=== PATIENT | female | born 1990 | race Caucasian/White ===

== ENCOUNTER 2017-04-26 16:56 | Emergency (ER) | payer BC, OTHER ==
[~2017-04-26] VITALS: Ht 157.5 cm; Wt 56.0 kg
[2017-04-26 16:59] VITALS: Ht 157.5 cm; Wt 56.0 kg
[2017-04-26] MEDS ORDERED: morphine 4 MG/ML VIAL IV STA (18:59)
[2017-04-26] MEDS ORDERED: ONDANSETRON 4 MG INJ IV STA (18:59)
[2017-04-26] MEDS ORDERED: SOD CHLORIDE 0.9% 1,000 ML IV STA (18:59)
--- NOTE | 2017-04-26 19:15 | ERD ---
ER Documentation Chief Complaint Chief Complaint SHAKY,DIZZINESS,AP HPI 26-year-old female presents here in emergency department for complaints of abdominal pain, generalized abdominal pain, radiating to the right flank area, sharp pain, 8/10 scale, not better or worse with anything. Patient feels shaky and dizzy at times. Patient denies any diarrhea or constipation. Patient denies any fever or chills. Patient denies any hematuria or dysuria ROS All systems reviewed and are negative except as per history of present illness. Medications Home Meds Active Scripts Ondansetron (Ondansetron Odt) 4 Mg Tab.rapdis, 4 MG PO Q6H Y for NAUSEA AND/OR VOMITING, #20 TAB Prov:MAGALY MENENDEZ NP 04/26/17 Ibuprofen* (Motrin*) 600 Mg Tab, 600 MG PO Q6H Y for PAIN AND OR ELEVATED TEMP, #30 TAB Prov:MAGALY MENENDEZ NP 04/26/17 Polyethylene Glycol* (Miralax*) 17 Gm Powd.pack, 17 GM PO DAILY, #7 Prov:MAGALY MENENDEZ NP 04/26/17 Docusate Sodium* (Colace*) 100 Mg Capsule, 100 MG PO TID, #30 CAP Prov:MAGALY MENENDEZ NP 04/26/17 Tramadol HCl (Tramadol HCl) 50 Mg Tablet, 50 MG PO Q6 Y for SEVERE PAIN LEVEL 7- 10, #20 TAB Prov:MAGALY MENENDEZ NP 04/26/17 Reported Medications [none] Unknown Strength No Conflict Check 04/26/17 Allergies Allergies: Coded Allergies: No Known Allergy (Verified Allergy, Unknown, 07/27/10) PMhx/Soc Medical and Surgical Hx: pt denies Medical Hx, pt denies Surgical Hx History of Surgery: No Anesthesia Reaction: No Hx Neurological Disorder: No Hx Respiratory Disorders: No Hx Cardiac Disorders: No Hx Psychiatric Problems: No Hx Miscellaneous Medical Probl: No Hx Alcohol Use: No Hx Substance Use: No Hx Tobacco Use: No FmHx Family History: No coronary disease, No diabetes, No other Physical Exam Vitals Vital Signs Date Time Temp Pulse Resp B/P Pulse Ox O2 Delivery O2 Flow Rate FiO2 04/26/17 16:59 98.1 110 18 150/72 99 Physical Exam GENERAL: The patient is well developed and appropriate for usual state of health, in no apparent distress. CHEST: Clear to auscultation bilaterally. There are no rales, wheezes or rhonchi. HEART: Regular rate and rhythm. No murmurs, clicks, rubs or gallops. No S3 or S4. ABDOMEN: Soft, nontender and nondistended. Good bowel sounds. No rebound or guarding. No gross peritonitis. No gross organomegaly or masses. No Smith sign or McBurney point tenderness. BACK: No midline or flank tenderness. EXTREMITIES: Equal pulses bilaterally. There is no peripheral clubbing, cyanosis or edema. No focal swelling or erythema. Full range of motion. Grossly neurovascularly intact. NEURO: Alert and oriented. Cranial nerves 2-12 intact. Motor strength in all 4 extremities with 5/5 strength. Sensation grossly intact. Normal speech and gait. SKIN: There is no apparent rash or petechia. The skin is warm and dry. HEMATOLOGIC AND LYMPHATIC: There is no evidence of excessive bruising or lymphedema. No gross cervical, axillary, or inguinal lymphadenopathy. Result Diagram: 04/26/17190904/26/171909 Results 24 hrs Laboratory Tests Test 04/26/17 19:10 White Blood Count 9.210^3/ul Red Blood Count 4.3610^6/ul Hemoglobin 14.4g/dl Hematocrit 40.5% Mean Corpuscular Volume 92.9fl Mean Corpuscular Hemoglobin 33.0pg Mean Corpuscular Hemoglobin Concent 35.6g/dl Red Cell Distribution Width 11.8% Platelet Count 66329^3/UL Mean Platelet Volume 11.4fl Neutrophils % 81.0% Lymphocytes % 13.7% Monocytes % 4.8% Eosinophils % 0.0% Basophils % 0.3% Nucleated Red Blood Cells % 0.0/100WBC Neutrophils # 7.410^3/ul Lymphocytes # 1.310^3/ul Monocytes # 0.410^3/ul Eosinophils # 0.010^3/ul Basophils # 0.010^3/ul Nucleated Red Blood Cells # 0.010^3/ul Urine Color STRAW Urine Clarity SLIGHTLY CLOUDY Urine pH 7.0 Urine Specific [place] 1.006 Urine Ketones TRACEmg/dL Urine Nitrite NEGATIVEmg/dL Urine Bilirubin NEGATIVEmg/dL Urine Urobilinogen NEGATIVEmg/dL Urine Leukocyte Esterase NEGATIVELeu/ul Urine Microscopic RBC 2/HPF Urine Microscopic WBC 1/HPF Urine Hemoglobin NEGATIVEmg/dL Urine Glucose NEGATIVEmg/dL Urine Total Protein NEGATIVEmg/dl Sodium Level 141mmol/L Potassium Level 3.6mmol/L Chloride Level 104mmol/L Carbon Dioxide Level 25mmol/L Anion Gap 16 Blood Urea Nitrogen 10mg/dl Creatinine 0.59mg/dl Glucose Level 90mg/dl Calcium Level 9.2mg/dl Total Bilirubin 0.2mg/dl Direct Bilirubin 0.00mg/dl Indirect Bilirubin 0.2mg/dl Aspartate Amino Transf (AST/SGOT) 23IU/L Alanine Aminotransferase (ALT/SGPT) 27IU/L Alkaline Phosphatase 61IU/L Total Protein 8.0g/dl Albumin 4.4g/dl Globulin 3.60g/dl Albumin/Globulin Ratio 1.22 Lipase 90U/L Current Medications Medications (Trade) Dose Ordered Sig/August Route PRN Reason Start Time Stop Time Status Last Admin Dose Admin Sodium Chloride (NS) 1,000 ml @ 1,000 mls/hr Q1H STAT IV 04/26/17 18:59 04/26/17 19:58 DC 04/26/17 19:22 Morphine Sulfate (morphine) 4 mg ONCE STAT IV 04/26/17 18:59 04/26/17 19:00 DC 04/26/17 19:21 Ondansetron HCl (Zofran Inj) 4 mg ONCE STAT IV 04/26/17 18:59 04/26/17 19:00 DC 04/26/17 19:19 Patient was given medication for pain here in emergency department, after treatment, patient verbalized feeling much better. Patient's pain is improved. Patient was given Zofran here in the emergency department. After treatment, patient was able to tolerate po fluids here in the emergency department without any vomiting. There is no signs and symptoms of dehydration. Normal saline IV bolus was given here in emergency department for rehydration, patient tolerated IV fluids.. PROCEDURE: CT Abdomen and Pelvis without contrast. CLINICAL INDICATION: Pain. TECHNIQUE: CT scan of the abdomen and pelvis was performed on a multidetector slice CT scanner. No intravenous contrast material was utilized. Sagittal and coronal reformatted images were obtained from the axial source images. Images were reviewed on a high-resolution PACS workstation. Exam CTDlvol = 4.3 mGy and DLP = 241 Gy-cm. One of the following 3 dose reduction techniques were used: Automated exposure control; adjustment of the mA and/or kV according to patient size; or use of iterative reconstruction technique. DICOM images are available. COMPARISON: None. FINDINGS: There is no obstruction or ileus. There is abundant stool throughout the colon. The appendix is visualized and normal in appearance, without evidence for appendicitis. There is a small amount of pelvic free fluid. The liver is overall normal in size. No intrahepatic lesions are identified. The gallbladder is normal in appearance. There is no definite biliary ductal dilation. Pancreas is normal in appearance. The spleen is unremarkable. There are no adrenal masses. The aorta is normal caliber. Kidneys are normal in appearance without hydronephrosis, mass or calculus. There is no perinephric collection. Ureters are of normal caliber and without evidence for an obstructing calculus The urinary bladder is normal in appearance. The uterus is unremarkable. The ovaries are not well characterized. Limited evaluation of the lung bases is unremarkable. The bones are unremarkable. IMPRESSION: 1. No evidence for appendicitis. 2. Abundant stool throughout the colon compatible with constipation. 3. Grossly unremarkable uterus. Ovaries not well defined. Small amount of pelvic free fluid. Pelvic ultrasound may be helpful if clinically indicated. RPTAT: HMVK .Anthony Marie MD, MD Date Time Electronically viewed and signed by .Anthony Marie MD, MD on 04/26/2017 20:00 .K/ CC: MAGALY MENENDEZ NP PROCEDURE: US Pelvis CLINICAL INDICATION: Pain. TECHNIQUE: Sonographic evaluation of the pelvis was performed utilizing both transabdominal and transvaginal technique. Images were reviewed on the high- resolution PACS workstation. COMPARISON: CT pelvis 04/26/2017 FINDINGS: The uterus is normal in size, echogenicity, and morphology. The uterus is 10.3 x 4 x 6 cm. The endometrium is thin and normal measuring 7.5 mm in diameter. The right ovary measures 3.3 x 1.5 x 2 cm. The left ovary measures 3.1 x 1.4 x 1.9 cm. The ovaries are symmetric in size, echogenicity, and morphology. Color doppler vascular flow is demonstrated to both ovaries. There are no adnexal masses. There is mild complex fluid in the posterior cul-de-sac. IMPRESSION: Normal examination of the uterus and ovaries. Mild complex/hemorrhagic free fluid in the posterior cul-de-sac. No adnexal mass. RPTAT: HMVK .Anthony Marie MD, MD Date Time Electronically viewed and signed by .Anthony Marie MD, MD on 04/26/2017 21:03 .K/ CC: MAGALY MENENDEZ [employer] MANAGER Procedures/MDM Medical Decision Making: Symptoms of abdominal pain right flank pain nonspecific at this time, can be viral, can be musculoskeletal pain. There is low suspicion for abdominal emergencies at this time. Patients abdominal exam is normal at this time. Patients radiology exam does not show any abdominal emergencies at this time. There is low suspicion for appendicitis, cholecystitis , abdominal aortic aneurysms or peritonitis at this time. There is low suspicion for sepsis. Patient appears well and is hemodynamically stable. Disposition: Home. Condition: Stable Prescription ibuprofen, Tramadol and Zofran Instructions: Patient is advised to take medications as prescribed. Patient is advised to rest, increase fluid intake and do brat diet for next 1-2 days and progress as tolerated. Patient is advised that if symptoms are worse, severe abdominal pain, uncontrolled vomiting, high fever, severe flank pain, worst signs and symptoms, to return to the emergency department immediately. Otherwise, patient can follow up with primary care doctor in 5-7 days. Disclaimer: Inadvertent spelling and grammatical errors are likely due to EHR/ dictation software use and do not reflect on the overall quality of patient care. Also, please note that the electronic time recorded on this note does not necessarily reflect the actual time of the patient encounter. Departure Diagnosis: Primary Impression: Abdominal pain Abdominal location: lower abdomen, unspecified Qualified Code: R10.30 - Lower abdominal pain Additional Impression: Flank pain Condition: Stable Patient Instructions: Abdominal Pain, Flank Pain, Uncertain Cause Additional Instructions: Patient is advised to take medications as prescribed. Patient is advised to rest, increase fluid intake and do brat diet for next 1-2 days and progress as tolerated. Patient is advised that if symptoms are worse, severe abdominal pain , uncontrolled vomiting, high fever, severe flank pain, worst signs and symptoms , to return to the emergency department immediately. Otherwise, patient can follow up with primary care doctor in 5-7 days. MAGALY MENENDEZ NP Apr 26, 2017 19:15
[2017-04-26 19:25] LABS: BASOPHILS % 0.3 % (0.0-2.0); HEMATOCRIT 40.5 % (37.0-47.0); HEMOGLOBIN 14.4 g/dl (12.0-16.0); LYMPHOCYTES # 1.3 10^3/ul (0.8-2.9); LYMPHOCYTES % 13.7 % (15.0-51.0); MEAN CORPUSCULAR HGB CONC 35.6 g/dl (32.0-37.0); MEAN CORPUSCULAR VOLUME 92.9 fl (82.0-101.0); MEAN PLATELET VOLUME 11.4 fl (7.4-10.4); MONOCYTE # 0.4 10^3/ul (0.3-0.9); MONOCYTES % 4.8 % (0.0-11.0); NEUTROPHIL # 7.4 10^3/ul (1.6-7.5); PLATELET COUNT 219 10^3/UL (140-415); RED BLOOD COUNT 4.36 10^6/ul (4.20-5.40); RED CELL DISTRIBUTION WIDTH 11.8 % (11.5-14.5); WHITE BLOOD COUNT 9.2 10^3/ul (4.8-10.8)
[2017-04-26 19:35] LABS: ADD UMIC NO; UR ASCORBIC ACID NEGATIVE (NEGATIVE); UR BILIRUBIN (Dip) NEGATIVE (NEGATIVE); UR BLOOD (Dip) NEGATIVE (NEGATIVE); UR CLARITY SLIGHTLY CLOUDY (CLEAR); UR COLOR STRAW (YELLOW); UR GLUCOSE (Dip) NEGATIVE (NEGATIVE); UR KETONES (Dip) TRACE mg/dL (NEGATIVE); UR LEUKOCYTE ESTERASE (Dip) NEGATIVE Leu/ul (NEGATIVE); UR NITRITE (Dip) NEGATIVE (NEGATIVE); UR RBC 2 /HPF (0-5); UR SPECIFIC GRAVITY (Dip) 1.006 (1.003-1.030); UR TOTAL PROTEIN (Dip) NEGATIVE (NEGATIVE); UR UROBILINOGEN (Dip) NEGATIVE (NEGATIVE)
[2017-04-26 19:52] LABS: ALBUMIN 4.4 g/dl (3.3-4.9); ALBUMIN/GLOBULIN RATIO 1.22; BILIRUBIN,INDIRECT 0.2 mg/dl (0-1.1); BILIRUBIN,TOTAL 0.2 mg/dl (0.2-1.3); CALCIUM 9.2 mg/dl (8.4-10.2); CREATININE 0.59 mg/dl (0.44-1.00); POTASSIUM 3.6 mmol/L (3.5-5.1)
--- NOTE | 2017-04-26 20:01 | RADRPT ---
PROCEDURE: CT Abdomen and Pelvis without contrast. CLINICAL INDICATION: Pain. TECHNIQUE: CT scan of the abdomen and pelvis was performed on a multidetector slice CT scanner. No intravenous contrast material was utilized. Sagittal and coronal reformatted images were obtained fr om the axial source images. Images were reviewed on a high-resolution PACS workstation. Exam CTDlvol = 4.3 mGy and DLP = 241 Gy-cm. One of the following 3 dose reduction techniques were used: Automate d exposure control; adjustment of the mA and/or kV according to patient size; or use of iterative re construction technique. DICOM images are available. COMPARISON: None. FINDINGS: There is no obstruction or ileus. There is abundant stool throughout the colon. The appendix is vis ualized and normal in appearance, without evidence for appendicitis. There is a small amount of pelv ic free fluid. The liver is overall normal in size. No intrahepatic lesions are identified. The gallbladder is norm al in appearance. There is no definite biliary ductal dilation. Pancreas is normal in appearance. Th e spleen is unremarkable. There are no adrenal masses. The aorta is normal caliber. Kidneys are normal in appearance without hydronephrosis, mass or calculus. There is no perinephric c ollection. Ureters are of normal caliber and without evidence for an obstructing calculus The urinar y bladder is normal in appearance. The uterus is unremarkable. The ovaries are not well characterized. Limited evaluation of the lung bases is unremarkable. The bones are unremarkable. IMPRESSION: 1. No evidence for appendicitis. 2. Abundant stool throughout the colon compatible with constipation. 3. Grossly unremarkable uterus. Ovaries not well defined. Small amount of pelvic free fluid. Pelvic ultrasound may be helpful if clinically indicated. RPTAT: HMVK .Anthony Marie MD, MD Date Time Electronically viewed and signed by .Anthony Marie MD, MD on 04/26/2017 20:00 ./
--- NOTE | 2017-04-26 21:04 | RADRPT ---
PROCEDURE: US Pelvis CLINICAL INDICATION: Pain. TECHNIQUE: Sonographic evaluation of the pelvis was performed utilizing both transabdominal and tr ansvaginal technique. Images were reviewed on the high-resolution PACS workstation. COMPARISON: CT pelvis 04/26/2017 FINDINGS: The uterus is normal in size, echogenicity, and morphology. The uterus is 10.3 x 4 x 6 cm. The end ometrium is thin and normal measuring 7.5 mm in diameter. The right ovary measures 3.3 x 1.5 x 2 cm. The left ovary measures 3.1 x 1.4 x 1.9 cm. The ovaries are symmetric in size, echogenicity, and morphology. Color doppler vascular flow is demonstrated to both ovaries. There are no adnexal masses. There is mild complex fluid in the posterior cul-de-s ac. IMPRESSION: Normal examination of the uterus and ovaries. Mild complex/hemorrhagic free fluid in the posterior c ul-de-sac. No adnexal mass. RPTAT: HMVK .Anthony Marie MD, MD Date Time Electronically viewed and signed by .Anthony Marie MD, MD on 04/26/2017 21:03 .K/
[2017-04-26] MEDS ORDERED: ONDA4TAB14 PO (21:21)
[2017-04-26] MEDS ORDERED: TRAM50TA2 PO (21:21)
[2017-04-26] MEDS ORDERED: POLY17PO6 PO (21:21)
[2017-04-26] MEDS ORDERED: DOCU-144 PO (21:21)
[2017-04-26] MEDS ORDERED: IBUP-1542 PO (21:21)
[2017-04-26 21:34] VITALS: BP 118/61; PULSE 92; RESP 16
== END 2017-04-26 21:35 | disposition home or self-care (01) ==
LOC: FTE 16:56
DX: R10.84 Generalized abdominal pain (principal)
CPT/HCPCS: 36415; 74176; 76830; 76856; 80053; 81001; 83690; 85025; 96374; 96375; 99285; J2270; J2405; J7030; 81003